=== PATIENT | female | born 1950 | race Caucasian/White ===

== ENCOUNTER → 2022-12-24 | Outpatient (CLI) | payer MEDICARE, BC ==
[~2022-12-24] MED LIST: AMLODIPINE BESYL5 MG PO; ASMANEX110 MC1 PO; ASMANEX110 MCG PO; B-125000 MCG PO; BIOTIN2500 MCG PO; BUSPIRONE HCL15 MG PO; CLINDAMYCIN HC150 MG PO; DOXYCYCLINE HY100 MG PO; FLUOXETINE HCL20 MG PO; GUAIFENESIN AC473 ML PO; HYDROCHLOROTHIA25 MG PO; LISINOPRIL10 MG PO; LOSARTAN POTASS25 MG PO; NORCO 7.5-3251 EACH PO; NUVIGIL150 MG PO; PAROXETINE HCL20 MG PO; PLAVIX75 MG PO; RANITIDINE HCL300 M1 PO; TEMAZEPAM30 MG PO; TRAZODONE HCL50 MG PO; VENTOLIN HFA18 GM; XOPENEX0.63 MG/3 INH; ZYRTEC10 M3 PO; [UNRECOGNIZED DRUG - REMARK]
== END ==
LOC: MRI 09:46
PROVIDERS: ATTEND Orthopaedic Surgery
DX: S70.01XA Contusion of right hip, initial encounter (principal); W01.0XXA Fall on same level from slipping, tripping and stumbling without subsequent striking against object, initial encounter

== ENCOUNTER 2024-04-24 13:00 | Emergency (ER) | payer MEDICARE, BC ==
[~2024-04-24] VITALS: Ht 170.2 cm; Wt 73.9 kg
[~2024-04-24 13:00] MED LIST changes: +ABILIFY2 MG PO; +ASPIRIN81 MG PO; +DILANTIN100 MG PO; +EXCEDRIN MIGRA1 EAC3 PO; +GAMMAGARD S-D 110 GM IV; +LAMICTAL100 MG PO; +LAMICTAL5 MG PO; +LEVOTHYROXINE50 MCG PO; +LEXAPRO20 MG PO; +LIOTHYRONINE SO5 MCG PO; +MULTI-VITAMIN1 EACH PO; +PANTOPRAZOLE SO40 MG PO; +POTASSIUM PO; +VIT D PO; +ZINC PO; +ZYRTEC-D TABLE1 EACH PO
[2024-04-24 13:05] VITALS: PULSE 85; RESP 17; TEMP 98.5; O2SAT 100
[2024-04-24] MEDS ORDERED: SODIUM CHLORIDE FLUSH 10 ML SYR IV PRN (13:30)
[2024-04-24 13:43] LABS: BASOPHILS % 0.4 % (0.0-1.0); EOSINOPHILS # (AUTO) 0.2 (0.0-0.4); EOSINOPHILS % 3.3 % (0.0-6.0); HEMATOCRIT 37.3 % (34.2-44.1); HEMOGLOBIN 12.4 g/dL (12.0-16.0); LYMPHOCYTES # (AUTO) 1.5 (1.0-3.2); MEAN CORPUSCULAR HEMOGLOBIN 29.3 pg (28-32); MEAN CORPUSCULAR HGB CONC 33.2 g/dL (31-35); MEAN CORPUSCULAR VOLUME 88.2 fL (81-99); MONOCYTES # (AUTO) 0.6 (0.2-0.8); MONOCYTES % 11.4 % (4.4-11.3); NEUTROPHILS # (AUTO) 2.9 (2.1-6.9); NEUTROPHILS % 56.3 % (38.7-80.0); PLATELET COUNT 251 x10e3/uL (140-360); RED BLOOD COUNT 4.23 x10e6/uL (3.6-5.1); RED CELL DISTRIBUTION WIDTH 13.2 % (11.7-14.4); WHITE BLOOD COUNT 5.18 x10e3/uL (4.8-10.8)
[2024-04-24 14:02] LABS: ALANINE AMINOTRANSFERASE 20 IU/L (0-55); ALBUMIN 3.4 g/dL (3.5-5.0); ALBUMIN/GLOBULIN RATIO 1.1 (0.8-2.0); ALKALINE PHOSPHATASE 77 IU/L (40-150); ANION GAP 13.7 mmol/L (8-16); BILIRUBIN,TOTAL 0.3 mg/dL (0.2-1.2); BLOOD UREA NITROGEN 15 mg/dL (7-26); BUN/CREATININE RATIO 17 (6-25); CALCIUM 8.5 mg/dL (8.4-10.2); CARBON DIOXIDE 24 mmol/L (22-29); CHLORIDE 103 mmol/L (98-107); EST GLOMERULAR FILTRATION RATE 67 ML/MIN (>=60); GLUCOSE 119 mg/dL (74-118); POTASSIUM 3.7 mmol/L (3.5-5.1); SODIUM 137 mmol/L (136-145); TOTAL PROTEIN 6.4 g/dL (6.5-8.1)
[2024-04-24 14:03] LABS: TROPONIN I < 0.05 ng/mL (0.0-0.40)
[2024-04-24] MEDS ORDERED: SODIUM CHLORIDE 0.9% 100 ML ONE (15:35)
[2024-04-24] MEDS ORDERED: IOPAMIDOL 370 MG/ML 100 ML INFUS..BTL INJ ONE (15:35)
== END 2024-04-24 15:36 | disposition home or self-care (01) ==
LOC: ER 13:18
DX: R06.02 Shortness of breath (principal); U07.1 COVID-19; R05.9 Cough, unspecified; I10 Essential (primary) hypertension; E03.9 Hypothyroidism, unspecified; G40.909 Epilepsy, unspecified, not intractable, without status epilepticus; K21.9 Gastro-esophageal reflux disease without esophagitis; F41.9 Anxiety disorder, unspecified; F32.A Depression, unspecified; R94.31 Abnormal electrocardiogram [ECG] [EKG]
CPT/HCPCS: 36415; 71260; 80053; 83880; 84484; 85025; 93005; 99284; J7050; Q9967

== ENCOUNTER 2025-06-09 07:52 | Emergency (ER) | payer MEDICARE, BC ==
[~2025-06-09] VITALS: Ht 170.2 cm; Wt 73.9 kg
[2025-06-09 08:00] VITALS: PULSE 83; TEMP 98.6
[2025-06-09] MEDS ORDERED: CYCLOBENZAPRINE10 MG PO (08:47)
[2025-06-09] MEDS: CYCLOBENZAPRINE HCL 10 MG TAB PO ONE (08:51)
[2025-06-09] MEDS: KETOROLAC TROMETHAMINE 30 MG/ML VIAL IM ONE (08:52)
[2025-06-09 09:26] VITALS: RESP 18
[2025-06-09 09:36] VITALS: BP 128/61; PULSE 71; RESP 18; O2SAT 96
== END 2025-06-09 09:38 | disposition home or self-care (01) ==
LOC: ER 08:03
DX: M54.2 Cervicalgia (principal); S46.812A Strain of other muscles, fascia and tendons at shoulder and upper arm level, left arm, initial encounter; I10 Essential (primary) hypertension; E03.9 Hypothyroidism, unspecified; G40.909 Epilepsy, unspecified, not intractable, without status epilepticus; K21.9 Gastro-esophageal reflux disease without esophagitis; F41.9 Anxiety disorder, unspecified; F32.A Depression, unspecified
CPT/HCPCS: 99283; J1885